=== PATIENT | female | born 1970 | race Caucasian/White ===

== ENCOUNTER → 2016-12-16 | Outpatient (CLI) | payer OTHER ==
[~2016-12-16] VITALS: Ht 162.6 cm; Wt 139.8 kg
[~2016-12-16] MED LIST: ACETAMINOPHEN325 M1 PO; BENTYL 20 MG TA20 M1 PO; CARAFATE1 GM/10 ML PO; CIPRO500 MG/5 M; CIPROFLOXACIN500 M3 PO; CLONAZEPAM 1 MG1 M1; CLONAZEPAM 1 MG1 M1 PO; COLACE100 MG PO; DEXAMETHASONE1 MG PO; DEXILANT60 MG PO; FLAGYL500 MG PO; FLEXERIL PO; HYDROCODON-ACE1 EAC8 PO; IBUPROFEN 600600 M1 PO; KEPPRA 500 MG500 M2 PO; KEPPRA XR750 MG PO; KEPPRA250 MG PO; KLONOPIN PO; LIDODERM 5%1 PATC1 TRANSDERM; MECLIZINE HCL12.5 MG; MELATONIN3 MG PO; MINOCIN100 MG PO; MOBIC15 MG PO; MOBIC7.5 MG PO; MOM PO; NAPROSYN500 MG PO; NORCO 5-325 TA1 EACH PO; OMEPRAZOLE 20 M20 M1 PO; OXYCODONE HCL15 MG PO; PANTOPRAZOLE SO40 M1 PO; PEPCID20 MG PO; PERCOCET 10-321 EACH PO; PERCOCET 5-3251 EACH PO; PERCOCET PO; PHENERGAN 25 MG25 M1 PO; PHENERGAN50 MG RC; PRILOSEC 20 MG20 MG PO; PROMS25 WY RECTAL; REGLAN 10 MG TA10 M1 PO; TYLENOL EXTRA500 MG PO; ULTRAM 50MG TAB50 MG PO; VICODIN 5-3001 EACH PO; ZOFRAN ODT4 MG PO; ZOFRAN4 MG PO
--- NOTE | ~2016-12-16 | HPC ---
[facility] [place] [address] PAIN MANAGEMENT CONSULTATION Name: AIDA RIVAS Room #: REG [facility] Daniel#: [id number] Admission: 12/16/16 Attend Phys: Ronaldo Barreto MD Discharge: Date of : 70 Report #: [id number] THIS REPORT FOR: //name// CC: Dionna Barreto DATE OF SERVICE: 12/16/2016 Followup visit for low back pain with radiation into the left hip. The patient returns to pain today in followup. She has had modest improvement with epidural injections, although duration of response has not been long. It has been harder and harder for her to manage her pain. She is morbidly obese. She also has suffered in the past from resection of a cerebral tumor and her memory and concentration is not good. She has followed for disability in the past and received it, but because she has taken herself off of all opioids, her disability is now question. I think that she is still likely disabled. although I have encouraged her to try and find some sort of meaningful and active work that will be helpful for her pain. I do not think she can hold on a full-time job. Even a part-time job would have to be very sporadic. She should maintain her Medicare disability. She has localized pain along the right side of the lumbosacral spine. The pain radiates down into the right hip and down into the leg. It does not go beyond the thigh. The possibility of this as referred pain from her facet joints was discussed today. If so, then she might be a candidate for radiofrequency ablation. The other alternative for her, if this is sciatica with radiculopathy, would be spinal cord stimulation. She raised a question today whether she was a candidate for that and I believe that she would be. We spent nearly 25 minutes of her 45-minute consultation today discussing spinal cord stimulation risks and benefits and she was given a DVD to watch. She understands the process of preauthorization including the psychological evaluation, a trial, successful. At this time, I answered many questions. PHYSICAL EXAMINATION: GENERAL: Today, she is morbidly obese, pleasant, alert and oriented. VITAL SIGNS: Blood pressure is 148/92, heart rate is 89. Her BMI is 52.9. MUSCULOSKELETAL: She moves from a sitting to standing position, ambulates with antalgic feature. She has pain in her low back radiating along the lumbar facet tenderness in the buttock and some discomfort with standing, weightbearing and back extension, radiating the pain into the posterolateral thigh. It does not go into the calf. Sensation is intact. Deep tendon reflexes are absent in the lower extremities. She walks with antalgic features. [address] [address] PAIN MANAGEMENT CONSULTATION Name: AIDA RIVAS Room #: REG CLKrzysztof Sanchez#: [id number] Admission: 12/16/16 Attend Phys: Ronaldo Barreto MD Discharge: Date of : 70 Report #: [id number] IMPRESSION: 1. Low back pain with radiculopathy. 2. Lumbar spondylosis/lumbar facet arthropathy. I was curious of the terminology in her MRI which says she does not have spondylosis yet, but during that course of the description of her spine describes degenerative changes at the L5-S1 and L4-L5 facet joints, clear characteristic of lumbar spondylosis. 3. Morbid obesity with a BMI of greater than 52. 4. History of drug addictions, now off of all opioids. 5. History of pancreatitis. 6. History of anxiety and substance abuse. 7. History of a brain tumor resection in 2012. PLAN: Medial branch nerve blocks L3-L4 and dorsal ramus nerve block on the right for diagnostic purposes. DESCRIPTION OF PROCEDURE: The patient was taken to fluoroscopic suite. She was placed prone. Skin prepped with ChloraPrep. Skin anesthetized over the aforementioned nerves in our appropriate landmarks. I had to use 6-inch Touhy needle to advance to the locations. After negative aspiration, each nerve was injected with 0.5 mL of 0.5% bupivacaine. She tolerated the procedure well. Pain score remained at 4-5 in the recovery room. My initial feeling of course is that this is a negative diagnostic injection and we should not proceed further. We will discuss further with her at next appointment. No medications were ordered. She will follow up on spinal cord stimulation. By: [id number] Ronaldo Barreto MD /nt
[2016-12-16 08:24] VITALS: BP 148/92
== END | disposition home or self-care (01) ==
LOC: PAIN 06:36
DX: M47.816 Spondylosis without myelopathy or radiculopathy, lumbar region (principal); M51.36 Other intervertebral disc degeneration, lumbar region; G89.29 Other chronic pain; F41.9 Anxiety disorder, unspecified; E66.01 Morbid (severe) obesity due to excess calories; Z92.29 Personal history of other drug therapy; Z87.19 Personal history of other diseases of the digestive system; Z85.841 Personal history of malignant neoplasm of brain; Z68.43 Body mass index [BMI] 50.0-59.9, adult; Z98.890 Other specified postprocedural states; Z87.891 Personal history of nicotine dependence

== ENCOUNTER → 2017-01-06 | Outpatient (CLI) | payer OTHER ==
[~2017-01-06] VITALS: Ht 162.6 cm; Wt 137.0 kg
[~2017-01-06] MED LIST changes: +VOLTAREN GEL 1100 G2 TOP
[2017-01-06 12:47] VITALS: BP 144/87
== END | disposition home or self-care (01) ==
LOC: PAIN 06:51
DX: M47.896 Other spondylosis, lumbar region (principal); G89.29 Other chronic pain; M12.88 Other specific arthropathies, not elsewhere classified, other specified site; E66.01 Morbid (severe) obesity due to excess calories; F12.10 Cannabis abuse, uncomplicated; F15.10 Other stimulant abuse, uncomplicated; Z87.19 Personal history of other diseases of the digestive system; F41.9 Anxiety disorder, unspecified; Z68.43 Body mass index [BMI] 50.0-59.9, adult; Z85.841 Personal history of malignant neoplasm of brain; Z87.891 Personal history of nicotine dependence; Z98.890 Other specified postprocedural states

== ENCOUNTER 2019-03-25 12:40 | Emergency (ER) | payer OTHER ==
[~2019-03-25] VITALS: Ht 162.6 cm; Wt 140.6 kg
[2019-03-25] MEDS ORDERED: MUPIROCIN22 GM (12:50)
[2019-03-25] MEDS ORDERED: DOXYCYCLINE 10100 MG PO (12:50)
[2019-03-25 12:51] VITALS: BP 150/100
[2019-03-25] MEDS ORDERED: BACTRIM DS TAB1 EACH PO (13:30)
[2019-03-26] MEDS ORDERED: IBUPROFEN 800800 M1 PO (16:42)
[2019-03-26] MEDS ORDERED: KEFLEX500 M1 PO (16:42)
== END 2019-03-25 13:52 | disposition home or self-care (01) ==
LOC: ER 12:40
DX: L02.01 Cutaneous abscess of face (principal); F41.9 Anxiety disorder, unspecified; Z86.14 Personal history of Methicillin resistant Staphylococcus aureus infection; Z90.49 Acquired absence of other specified parts of digestive tract; Z98.890 Other specified postprocedural states; Z90.711 Acquired absence of uterus with remaining cervical stump

== ENCOUNTER 2019-03-26 15:26 | Emergency (ER) | payer OTHER ==
[~2019-03-26] VITALS: Ht 162.6 cm; Wt 140.6 kg
[~2019-03-26 15:26] MED LIST changes: +BACTRIM DS TAB1 EACH PO; +DOXYCYCLINE 10100 MG PO; +MUPIROCIN22 GM
[2019-03-26] MEDS ORDERED: IBUPROFEN 800800 M1 PO (16:42)
[2019-03-26] MEDS ORDERED: KEFLEX500 M1 PO (16:42)
[2019-03-26 17:25] VITALS: BP 139/63
== END 2019-03-26 17:07 | disposition home or self-care (01) ==
LOC: ER 15:26
DX: L02.01 Cutaneous abscess of face (principal); L03.811 Cellulitis of head [any part, except face]; F41.9 Anxiety disorder, unspecified; Z90.710 Acquired absence of both cervix and uterus; Z90.49 Acquired absence of other specified parts of digestive tract

== ENCOUNTER 2020-02-06 10:12 | Emergency (ER) | payer OTHER ==
[~2020-02-06] VITALS: Ht 162.6 cm; Wt 138.3 kg
[~2020-02-06 10:12] MED LIST changes: +IBUPROFEN 800800 M1 PO; +KEFLEX500 M1 PO
[2020-02-06] MEDS ORDERED: LIPITOR 10 MG10 M1 PO (10:18)
[2020-02-06] MEDS ORDERED: MOBIC15 MG PO (12:39)
[2020-02-06 13:08] VITALS: BP 142/93
== END 2020-02-06 13:12 | disposition home or self-care (01) ==
LOC: ER 10:12
DX: J02.9 Acute pharyngitis, unspecified (principal); Z20.828 Contact with and (suspected) exposure to other viral communicable diseases; H92.02 Otalgia, left ear; F41.9 Anxiety disorder, unspecified; Z90.711 Acquired absence of uterus with remaining cervical stump; Z90.49 Acquired absence of other specified parts of digestive tract; Z86.14 Personal history of Methicillin resistant Staphylococcus aureus infection; Z79.899 Other long term (current) drug therapy